=== PATIENT | male | born 1950 | race Two or more races ===

== ENCOUNTER 2018-04-20 20:28 | Emergency (ER) | payer MEDICAID ==
[~2018-04-20] VITALS: Ht 162.6 cm; Wt 68.0 kg
[~2018-04-20 20:28] MED LIST: IBUPROFEN800 MG ORAL
[2018-04-20 21:00] VITALS: BP 170/108
[2018-04-20 21:26] LABS: BASOPHILS % (AUTO) 1.7 % (0.0-2.0); EOSINOPHILS % (AUTO) 2.2 % (0.0-3.0); HEMATOCRIT 49.1 % (42.0-52.0); HEMOGLOBIN 17.3 G/DL (14.2-18.0); LYMPHOCYTES % (AUTO) 36.6 % (20.0-45.0); MEAN CORPUSCULAR VOLUME 91 FL (80-99); MONOCYTES % (AUTO) 5.9 % (1.0-10.0); NEUTROPHILS % (AUTO) 53.6 % (45.0-75.0); PLATELET COUNT 245 K/UL (150-450); RED CELL DISTRIBUTION WIDTH 10.9 % (11.6-14.8); WHITE BLOOD COUNT 7.4 K/UL (4.8-10.8)
[2018-04-20 21:35] LABS: APPEARANCE,URINE CLEAR; BILIRUBIN, URINE NEGATIVE (NEGATIVE); GLUCOSE, URINE (UA) NEGATIVE (NEGATIVE); KETONES,URINE NEGATIVE (NEGATIVE); LEUKOCYTE ESTERASE ,URINE 1+ (NEGATIVE); NITRITE,URINE NEGATIVE (NEGATIVE); PH,URINE 5 (4.5-8.0); PROTEIN,URINE 1+ (NEGATIVE); UROBILINOGEN,URINE NORMAL MG/DL (0.0-1.0)
[2018-04-20 21:39] LABS: COLOR,URINE YELLOW
[2018-04-20 21:41] LABS: ANION GAP 8 mmol/L (5-15); BLOOD UREA NITROGEN 22 mg/dL (7-18); CALCIUM 9.2 MG/DL (8.5-10.1); CARBON DIOXIDE 32 MMOL/L (21-32); CHLORIDE 97 MMOL/L (98-107); CREATININE 1.6 MG/DL (0.55-1.30); SODIUM 137 MMOL/L (136-145)
[2018-04-20 22:15] VITALS: BP 182/105
[2018-04-20 22:40] VITALS: BP 134/83
[2018-04-20] MEDS ORDERED: VERAPAMIL ER120 MG PO (22:44)
[2018-04-20] MEDS ORDERED: BENAZEPRIL HCL40 MG ORAL (22:44)
--- NOTE | 2018-04-20 22:45 | Emergency Room Report ---
History of Present Illness General Chief Complaint: Hypertension Source: Patient, Family Member Present Illness HPI This is a 67-year-old male with a history of high blood pressure but noncompliant on his to Cipro and hydrochlorothiazide. He hasn't taken it for a while. He presents with chief complaint of high blood pressure. He thinks at high blood pressure because he felt throbbing in his head. He denies any focal deficit. Denies any nausea vomiting denies hematuria. He denies any chest pain. Took his blood pressure medication which were old. He came in for evaluation. Allergies: Coded Allergies: No Known Allergies (Unverified , 03/23/12) Patient History Past Medical History: see triage record, old chart reviewed, HTN Past Surgical History: none Pertinent Family History: none Social History: Denies: smoking Immunizations: other Reviewed Nursing Documentation: PMH: Agreed; PSxH: Agreed Nursing Documentation-PM Past Medical History: No History, Except For Hx Cardiac Problems: Yes Hx Hypertension: Yes Hx Cancer: No Hx Gastrointestinal Problems: Yes - SAYS THAT HE PASSES SMALL AMTS STOOL Hx Neurological Problems: Yes Hx Numbness: Yes - STARTED TODAY 03/23/12 Review of Systems Eye: Denies: eye pain, blurred vision ENT: Denies: ear pain, nose congestion, throat swelling Respiratory: Denies: cough, shortness of breath Cardiovascular: Denies: chest pain, palpitations Gastrointestinal: Denies: abdominal pain, diarrhea, nausea, vomiting Musculoskeletal: Denies: back pain, joint pain Skin: Denies: rash Neurological: Reports: headache; Denies: numbness Endocrine: Denies: increased thirst, increased urine Hematologic/Lymphatic: Denies: easy bruising All Other Systems: negative except mentioned in HPI Physical Exam Vital Signs Date Time Temp Pulse Resp B/P (MAP) Pulse Ox O2 Delivery O2 Flow Rate FiO2 04/20/18 20:39 98.2 72 18 197/119 97 Room Air vitals with high blood pressure Sp02 EP Interpretation: reviewed, normal General Appearance: well appearing, no apparent distress, alert Head: normocephalic, atraumatic Eyes: bilateral eye PERRL, bilateral eye EOMI ENT: hearing grossly normal, normal pharynx Neck: full range of motion, supple, no meningismus Respiratory: chest non-tender, lungs clear, normal breath sounds Cardiovascular #1: regular rate, rhythm, no murmur Gastrointestinal: normal bowel sounds, non tender, no mass, no organomegaly, no bruit, non-distended Musculoskeletal: back normal, gait/station normal, normal range of motion Neurologic: alert, oriented x3 Psychiatric: mood/affect normal Skin: warm/dry Medical Decision Making Diagnostic Impression: Primary Impression: Hypertension Qualified Codes: I10 - Essential (primary) hypertension Additional Impressions: CKD (chronic kidney disease) Qualified Codes: N18.9 - Chronic kidney disease, unspecified Proteinuria Qualified Codes: R80.9 - Proteinuria, unspecified ER Course Patient presents with high blood pressure with evidence of renal insufficiency and proteinuria. No evidence of endorgan damage. Blood pressure improved. We' ll discharge home. Lab Results Impression labs with elevated creatine Last Vital Signs Date Time Temp Pulse Resp B/P (MAP) Pulse Ox O2 Delivery O2 Flow Rate FiO2 04/20/18 22:29 182/105 04/20/18 22:15 98.2 92 16 97 Room Air Status: improved Disposition: HOME, SELF-CARE Condition: Stable Scripts Verapamil Hcl (VERAPAMIL ER) 120 Mg Cap24h.pel 120 MG PO DAILY, #30 CAP Prov: Jc Carnes MD 04/20/18 Benazepril Hcl* (BENAZEPRIL HCL*) 40 Mg Tablet 40 MG ORAL DAILY, #30 TAB Prov: Jc Carnes MD 04/20/18 Referrals: NOT CHOSEN [facility]/,REFERRING (PCP) Additional Instructions: Follow-up with your doctor in 7 days. Decrease salt intake. Return if worse. Jc Carnes MD Apr 20, 2018 22:45
[2018-04-20 23:00] VITALS: BP 134/83
== END 2018-04-20 23:00 | disposition home or self-care (01) ==
LOC: EMR 20:57
DX: I12.9 Hypertensive chronic kidney disease with stage 1 through stage 4 chronic kidney disease, or unspecified chronic kidney disease (principal); N18.9 Chronic kidney disease, unspecified; R80.9 Proteinuria, unspecified; Z91.14 Patient's other noncompliance with medication regimen
CPT/HCPCS: 36415; 80048; 81001; 85025; 96374; 99284; J0360

== ENCOUNTER 2018-05-07 11:19 | Emergency (ER) | payer SELFPAY ==
[~2018-05-07] VITALS: Ht 167.6 cm; Wt 69.9 kg
[~2018-05-07 11:19] MED LIST changes: +BENAZEPRIL HCL40 MG ORAL; +VERAPAMIL ER120 MG PO
[2018-05-07 11:40] VITALS: BP 192/96
[2018-05-07 11:44] VITALS: BP 174/91
[2018-05-07 13:14] LABS: BASOPHILS % (AUTO) 1.7 % (0.0-2.0); EOSINOPHILS % (AUTO) 3.8 % (0.0-3.0); HEMATOCRIT 45.2 % (42.0-52.0); HEMOGLOBIN 15.7 G/DL (14.2-18.0); LYMPHOCYTES % (AUTO) 37.1 % (20.0-45.0); MEAN CORPUSCULAR VOLUME 90 FL (80-99); MONOCYTES % (AUTO) 5.6 % (1.0-10.0); NEUTROPHILS % (AUTO) 51.8 % (45.0-75.0); PLATELET COUNT 270 K/UL (150-450); RED BLOOD COUNT 5.04 M/UL (4.70-6.10)
[2018-05-07 13:21] LABS: ANION GAP 9 mmol/L (5-15); BLOOD UREA NITROGEN 16 mg/dL (7-18); CALCIUM 8.7 MG/DL (8.5-10.1); CARBON DIOXIDE 25 MMOL/L (21-32); CHLORIDE 105 MMOL/L (98-107); POTASSIUM 3.8 MMOL/L (3.5-5.1); SODIUM 139 MMOL/L (136-145)
[2018-05-07 13:35] LABS: ALANINE AMINOTRANSFERASE 26 U/L (12-78); ALBUMIN 3.5 G/DL (3.4-5.0); ALBUMIN/GLOBULIN RATIO 0.8 (1.0-2.7); ALKALINE PHOSPHATASE 94 U/L (46-116); ASPARTATE AMINO TRANSFERASE 20 U/L (15-37); BILIRUBIN,TOTAL 0.5 MG/DL (0.2-1.0); CKMB 1.9 NG/ML (0.0-3.6); CREATINE KINASE 153 U/L (26-308)
[2018-05-07 13:45] VITALS: BP 170/92
[2018-05-07] MEDS ORDERED: Verapamil 180mg SR tab ORAL ONE (14:00)
--- NOTE | 2018-05-07 14:59 | Emergency Room Report ---
History of Present Illness General Chief Complaint: Hypertension Source: Patient Present Illness HPI She has a history of hypertension. He has been off his medications and went to the clinic to get a refill on his blood pressure medications. He states when he went there his blood pressure was elevated and he was instructed to come to the emergency department by physician assistant boiler operator in the clinic. He denies chest pain or short of breath. He denies headache. He denies recent illness. He denies cough or congestion. He is completely asymptomatic and states he does not understand why he was instructed to come in emergency department. He has no other complaints. Allergies: Coded Allergies: No Known Allergies (Unverified , 03/23/12) Patient History Past Medical History: see triage record, HTN Social History: Reports: alcohol use; Denies: smoking, drug use Reviewed Nursing Documentation: PMH: Agreed; PSxH: Agreed Nursing Documentation-PMH Past Medical History: No History, Except For Hx Cardiac Problems: Yes Hx Hypertension: Yes Hx Cancer: No Hx Gastrointestinal Problems: Yes - SAYS THAT HE PASSES SMALL AMTS STOOL Hx Neurological Problems: Yes Hx Numbness: Yes - STARTED TODAY 03/23/12 Review of Systems All Other Systems: negative except mentioned in HPI Physical Exam Vital Signs Date Time Temp Pulse Resp B/P (MAP) Pulse Ox O2 Delivery O2 Flow Rate FiO2 05/07/18 11:38 97.5 56 19 192/96 98 Room Air Sp02 EP Interpretation: reviewed, normal General Appearance: no apparent distress, alert, GCS 15, non-toxic Head: normocephalic, atraumatic Eyes: bilateral eye normal inspection, bilateral eye PERRL ENT: hearing grossly normal, normal pharynx, no angioedema, normal voice Neck: full range of motion, supple/symm/no masses Respiratory: chest non-tender, lungs clear, normal breath sounds, no respiratory distress, no retraction, no accessory muscle use, speaking full sentences Cardiovascular #1: regular rate, rhythm, no edema Gastrointestinal: normal bowel sounds, non tender, soft, non-distended, no guarding, no rebound Rectal: deferred Musculoskeletal: back normal, gait/station normal, normal range of motion, non- tender Neurologic: alert, oriented x3, responsive, motor strength/tone normal, sensory intact, speech normal Psychiatric: judgement/insight normal, memory normal, mood/affect normal, no suicidal/homicidal ideation Skin: normal color, no rash, warm/dry, well hydrated Medical Decision Making Diagnostic Impression: Primary Impression: Hypertension ER Course This patient presents with hypertension. He is asymptomatic. I did obtain an EKG and there was nonspecific ST segment findings and unfortunately there was no comparison EKG available. Therefore, I felt that I should obtain basic labs to include a troponin. These were unremarkable. I considered PE, PTX, acute coronary syndrome, aortic dissection, pneumonia which is unlikely given hx, CE, CXR. Low risk PERC and Wells. Negative work-up to include Cardiac enzymes, CXR , EKG. Given history and PE I do not feel that this patient needs further evaluation at this time. I will restart the patient on benazapril and verapamil which he had been on previously. The patient was instructed to follow -up closely with their PCP and close return precautions were given. Laboratory Tests Test 05/07/18 12:40 White Blood Count 5.0 K/UL (4.8-10.8) Red Blood Count 5.04 M/UL (4.70-6.10) Hemoglobin 15.7 G/DL (14.2-18.0) Hematocrit 45.2 % (42.0-52.0) Mean Corpuscular Volume 90 FL (80-99) Mean Corpuscular Hemoglobin 31.2 PG (27.0-31.0) H Mean Corpuscular Hemoglobin Concent 34.8 G/DL (32.0-36.0) Red Cell Distribution Width 11.0 % (11.6-14.8) L Platelet Count 270 K/UL (150-450) Mean Platelet Volume 5.8 FL (6.5-10.1) L Neutrophils (%) (Auto) 51.8 % (45.0-75.0) Lymphocytes (%) (Auto) 37.1 % (20.0-45.0) Monocytes (%) (Auto) 5.6 % (1.0-10.0) Eosinophils (%) (Auto) 3.8 % (0.0-3.0) H Basophils (%) (Auto) 1.7 % (0.0-2.0) Sodium Level 139 MMOL/L (136-145) Potassium Level 3.8 MMOL/L (3.5-5.1) Chloride Level 105 MMOL/L (98-107) Carbon Dioxide Level 25 MMOL/L (21-32) Anion Gap 9 mmol/L (5-15) Blood Urea Nitrogen 16 mg/dL (7-18) Creatinine 1.0 MG/DL (0.55-1.30) Estimate Glomerular Filtration Rate > 60 mL/min (>60) Glucose Level 96 MG/DL (74-106) Calcium Level 8.7 MG/DL (8.5-10.1) Total Bilirubin 0.5 MG/DL (0.2-1.0) Aspartate Amino Transferase (AST) 20 U/L (15-37) Alanine Aminotransferase (ALT) 26 U/L (12-78) Alkaline Phosphatase 94 U/L (46-116) Total Creatine Kinase 153 U/L (26-308) Creatine Kinase MB 1.9 NG/ML (0.0-3.6) Creatine Kinase MB Relative Index 1.2 Troponin I 0.001 ng/mL (0.000-0.056) Total Protein 8.0 G/DL (6.4-8.2) Albumin 3.5 G/DL (3.4-5.0) Globulin 4.5 g/dL Albumin/Globulin Ratio 0.8 (1.0-2.7) L EKG Diagnostic Results Rate: normal Rhythm: NSR ST Segments: other - NSST findings anter and inferior. Rhythm Strip Diag. Results EP Interpretation: yes Rate: 50's Rhythm: NSR, no PVC's, no ectopy Chest X-Ray Diagnostic Results Chest X-Ray Diagnostic Results : Chest X-Ray Ordered: Yes # of Views/Limited/Complete: 1 View Indication: Other Interpretation: no consolidation, no effusion, no pneumothorax, no acute cardiopulmonary disease Impression: No acute disease Electronically Signed by: Ying Last Vital Signs Date Time Temp Pulse Resp B/P (MAP) Pulse Ox O2 Delivery O2 Flow Rate FiO2 05/07/18 14:28 60 176/102 05/07/18 13:45 8 100 Room Air 05/07/18 11:40 97.5 Status: improved Disposition: HOME, SELF-CARE Condition: Improved Referrals: NOT CHOSEN [facility]/,REFERRING (PCP) Marisol Pineda DO May 07, 2018 14:59
[2018-05-07] MEDS ORDERED: BENAZEPRIL HCL40 MG ORAL (15:06)
[2018-05-07] MEDS ORDERED: VERAPAMIL HCL120 MG PO (15:06)
--- NOTE | 2018-05-07 15:15 | Diagnostic Imaging Report ---
Indication: Weakness Technique: One view of the chest Comparison: 03/23/2012 Findings: Lungs and pleural spaces are clear. Heart size is upper limits normal . No significant change Impression: No acute process
[2018-05-07 15:41] VITALS: BP 139/82
[2018-05-07 15:47] VITALS: BP 139/82
--- NOTE | 2018-05-07 16:20 | Emergency Room Report ---
Physical Exam Vital Signs Date Time Temp Pulse Resp B/P (MAP) Pulse Ox O2 Delivery O2 Flow Rate FiO2 05/07/18 11:38 97.5 56 19 192/96 98 Room Air General Appearance: no apparent distress, alert, GCS 15, non-toxic Respiratory: chest non-tender, lungs clear, normal breath sounds, speaking full sentences Cardiovascular #1: regular rate, rhythm, no edema Medical Decision Making Diagnostic Impression: Primary Impression: Hypertension ER Course I did review the patient's chart. The blood pressure has improved signs of end organ damage. And given this fact, I feel the pa follow-up with his primary care physician. The patient will not be an indication for admission. Last Vital Signs Date Time Temp Pulse Resp B/P (MAP) Pulse Ox O2 Delivery O2 Flow Rate FiO2 05/07/18 15:47 97.5 88 14 139/82 100 Room Air Disposition: HOME, SELF-CARE Condition: Improved Scripts Verapamil Hcl (VERAPAMIL HCL) 120 Mg Tablet 120 MG PO once daily, #60 TAB Prov: Marisol Pineda DO 05/07/18 Benazepril Hcl* (BENAZEPRIL HCL*) 40 Mg Tablet 40 MG ORAL DAILY, #60 TAB Prov: Marisol Pineda DO 05/07/18 Referrals: NOT CHOSEN [facility]/MD,REFERRING (PCP) Patient Instructions: Hypertension, [id number], Managing Your High Blood Pressure Additional Instructions: Please follow-up closely with her primary care physician. He will also need to see a behavioral consultant for routine follow-up. JACOB HEARD May 07, 2018 16:20
== END 2018-05-07 15:48 | disposition home or self-care (01) ==
LOC: EMR 12:07
DX: I10 Essential (primary) hypertension (principal)
CPT/HCPCS: 36415; 71045; 80053; 82550; 82553; 84484; 85025; 93005; 96374; 99284; J0360